=== PATIENT | female | born 1990 | race Caucasian/White ===

== ENCOUNTER 2021-03-08 19:44 | Emergency (ER) | payer SELFPAY ==
--- NOTE | 2021-03-08 21:05 | Event Note ---
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 Further treatment and workup at subsequent clinical providers discretion. Patient/guardian urged not to elope from the ED as their condition may be serious if not clinically assessed and m anaged. Initial orders include: ua urine preg tdap
[2021-03-08 21:52] LABS: Bilirubin,Urine NEG (Negative); Blood,Urine LG (Negative); Color,Urine Amber (Yellow); Mucus,Urine 3+ /HPF
[2021-03-08 21:55] LABS: RBC,Urine > 182.0 /HPF (0.0-6.0); WBC,Urine > 182.0 /HPF (0.0-6.0)
[2021-03-08 21:56] LABS: HCG Qualitative,Urine Negative (Negative)
[2021-03-08] MEDS ORDERED: TETANUS,DIPH,PERTUSS(ACELL) VACCINE 0.5 ML SYRINGE IM ONE (22:05)
[2021-03-08] MEDS ORDERED: SULFAMETHOXAZOLE/TRIMETHOPRIM 800/160MG DS TAB PO ONE (22:36)
[2021-03-08] MEDS ORDERED: NEOMY 3.5 MG/BACIT 400 UNITS/POLY B 5000 UNITS/GM OINT PACKET TP ONE (22:36)
--- NOTE | 2021-03-08 22:42 | Emergency Department Report ---
ED General Adult HPI - General Chief complaint: Urogenital-Female Stated complaint: CUT RT FINGER/POSS UTI Time Seen by Provider: 03/08/21 22:25 Source: patient Limitations: No Limitations - History of Present Illness Initial comments: 30-year-old female patient with history of recurrent urinary tract infections presents to the emergency department with complaints of an accidental laceration to her right thumb occurring today. 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 Cannot recall last tetanus immunization. Additionally, patient reports painful urination starting today. Symptoms are reminiscent of prior urinary tract infections. Patient is currently on her menstrual cycle. Denies fever, chills, nausea, vomiting, back pain, vaginal discharge. Denies all other complaints at this time. - Related Data Previous Rx's Medication Instructions Recorded Last Taken Type Phenazopyridine HCl [Azo Urinary 2 tab PO TID 2 Days tablet 03/08/21 Unknown Rx Pain Relief] Sulfamethoxazole/Trimethoprim 1 each PO BID 10 Days tablet 03/08/21 Unknown Rx [Bactrim DS TAB] Allergies Allergy/AdvReac Type Severity Reaction Status Date / Time vancomycin Allergy Hives Verified 03/08/21 21:12 ED Review of Systems ROS: Stated complaint: CUT RT FINGER/POSS UTI Other details as noted in HPI Other: GENERAL: Negative for fever, chills, weight change, anorexia, fatigue. ENT: Negative for ear pain, difficulty hearing, sore throat, nasal congestion, epistaxis. CARDIOVASCULAR: Negative for chest pain, palpitations, lower extremity swelling. PULMONARY: Negative for cough, dyspnea, wheezing, orthopnea, cyanosis. GASTROINTESTINAL: Negative for abdominal pain, nausea, vomiting, diarrhea, constipation. GENITOURINARY: Positive for painful urination. MUSCULOSKELETAL: Negative for joint pain, joint swelling, myalgias, back pain, neck pain. NEUROLOGICAL: Negative for headache, seizure, syncope, paresthesias, weakness. INTEGUMENTARY: Positive for laceration. HEMATOLOGICAL: Negative for hemoptysis, hematemesis, hematochezia, hematuria. PSYCHIATRIC: Negative for hallucinations, suicidal ideation, homicidal ideation, anxiety, depression. ED Past Medical Hx - Past Medical History Previous Medical History?: Yes Hx Kidney Stones: Yes - Surgical History Past Surgical History?: No - Social History Smoking Status: Current Every Day Smoker Substance Use Type: Marijuana - Medications Home Medications: Home Medications Medication Instructions Recorded Confirmed Last Taken Type Phenazopyridine HCl [Azo Urinary 2 tab PO TID 2 Days tablet 03/08/21 Unknown Rx Pain Relief] Sulfamethoxazole/Trimethoprim 1 each PO BID 10 Days tablet 03/08/21 Unknown Rx [Bactrim DS TAB] ED Physical Exam - General Limitations: No Limitations - Other Other exam information: General: Awake and alert. No acute distress. Head: Atraumatic, normocephalic. Eyes: EOMI. Pupils are equal and round. Normal sclera and conjunctiva. ENT: Oral mucosa is moist. Normal pharyngeal exam. Neck: Supple. No lymphadenopathy. Pulmonary: No respiratory distress. Clear to auscultation bilaterally. Cardiac: Regular rate and rhythm. Pulses are palpable and equal bilaterally. No lower extremity cyanosis or edema. Skin: 0.5 cm superficial laceration to the palmar aspect of the right thumb. Wound edges are well approximated. Bleeding is controlled. Distal neurovascular and motor/sensory function intact. Abdomen: Soft, non-tender, non-protuberant. No guarding, rigidity, or rebound. Bowel sounds are normal. No organomegaly or masses noted. Back: Normal alignment. No CVA tenderness. Extremities: Symmetrical. Full range of motion intact. Neurological: Alert and oriented, appropriately interactive, no focal deficits. Psych: Cooperative. Appropriate mood and affect. Speech is evenly metered. Thoughts are logically construed. ED Course Vital Signs 03/08/21 03/08/21 20:59 23:15 Temperature 98.8 F 98.2 F Pulse Rate 83 64 Respiratory 16 16 Rate Blood Pressure 105/65 Blood Pressure 114/64 [Right] O2 Sat by Pulse 97 100 Oximetry ED Medical Decision Making - Medical Decision Making Differential diagnosis including but not limited to: laceration, abrasion, , urinary tract infection, pyelonephritis, nephrolithiasis, pelvic inflammatory disease On reevaluation, patient remains stable. Repeat abdominal exam is benign. Wound care administered, not an appropriate candidate for primary closure, as wound edges are already well approximated, bleeding is controlled, and the wound is superficial. test is negative. Urinalysis shows evidence of yeast infection as well as UTI. Urine culture sent. No fever, nausea, vomiting, vaginal discharge, or CVA tenderness to suggest pyelonephritis, pelvic inflammatory disease, or other concomitant infectious process warranting further diagnostic work-up on an emergent basis at this time. Due to the recurrent nature of her urinary tract infections as well as the significant amount of pyuria, she will be treated with Bactrim for ten days and referred to primary care provider for close outpatient follow-up. Patient expressed understanding and is agreeable to plan of care. Strict return precautions provided. Repeat exam is unremarkable and benign. History, exam, diagnostic testing, and current condition do not suggest worrisome pathology to warrant further testing, continued ED treatment, admission, or surgical evaluation at this point. Given the low probability of a significant medical illness, it would be more likely to result in harm than benefit to perform further testing at this stage. Discussed findings, presumptive diagnosis, need for follow-up and specific signs/symptoms that should prompt immediate return to the emergency department. Instructions were explained in detail to the patient in addition to giving written discharge information. Patient expressed understanding and was given the opportunity to ask questions, all of which were satisfactorily answered prior to discharge home. Critical care attestation.: If time is entered above; I have spent that time in minutes in the direct care of this critically ill patient, excluding procedure time. ED Disposition Clinical Impression: Candiduria Thumb laceration Qualifiers: Encounter type: initial encounter Damage to nail status: without damage Foreign body presence: without foreign body Laterality: right Qualified Code(s): S61.011A - Laceration without foreign body of right thumb without damage to nail, initial encounter Urinary tract infection Qualifiers: Urinary tract infection type: acute cystitis Hematuria presence: with hematuria Qualified Code(s): N30.01 - Acute cystitis with hematuria Disposition: TO HOME OR SELFCARE Is pt being admited?: No Does the pt Need Aspirin: No Condition: Stable Instructions: Urinary Tract Infection, Adult, [id number], Nonsutured Laceration Care Additional Instructions: Take Tylenol every 4 hours and Motrin every 8 hours as needed for pain. Take AZO as directed for urinary discomfort. Take Bactrim with food as directed. Increase your dietary intake of probiotic rich foods while taking this medication. Rest. Drink plenty of fluids. Apply antibiotic ointment to the right thumb 3 times daily. Keep wound clean and covered. Change dressing daily. Follow-up with primary care provider this week. Call Wednesday to schedule an appointment. Return to the emergency department immediately for new or worsening symptoms. Prescriptions: Phenazopyridine HCl [Azo Urinary Pain Relief] 2 tab PO TID 2 Days tablet Sulfamethoxazole/Trimethoprim [Bactrim DS TAB] 1 each PO BID 10 Days tablet Referrals: [facility] [Provider Group] - 3-5 Days Forms: Work/School Release Form(ED) Time of Disposition: 22:42
[2021-03-08] MEDS ORDERED: FLUCONAZOLE 200 MG TAB PO ONE (22:56)
[2021-03-09 00:01] VITALS: BP 114/64
== END 2021-03-08 23:15 | disposition home or self-care (01) ==
LOC: ED 19:44
DX: S61.011A Laceration without foreign body of right thumb without damage to nail, initial encounter (principal); N39.0 Urinary tract infection, site not specified; F17.200 Nicotine dependence, unspecified, uncomplicated; F12.90 Cannabis use, unspecified, uncomplicated; Z72.89 Other problems related to lifestyle; Z88.1 Allergy status to other antibiotic agents; Z79.899 Other long term (current) drug therapy; W26.8XXA Contact with other sharp object(s), not elsewhere classified, initial encounter; Y93.89 Activity, other specified; Y92.89 Other specified places as the place of occurrence of the external cause; Y99.8 Other external cause status
CPT/HCPCS: 81001; 81025; 87086; 90471; 90715; 99283; A6250